=== PATIENT | female | born 1965 | race Caucasian/White ===

== ENCOUNTER 2019-08-26 16:59 | Emergency (ER) | payer SELFPAY ==
--- NOTE | ~2019-08-26 | XR_ITS ---
EXAMINATION: XR chest ET placement INDICATION: Endotracheal tube insertion TECHNIQUE: Portable AP chest at 1747 hours COMPARISON: 09/27/2017 FINDINGS: An endotracheal tube has been inserted which ends 5.0 cm above the shawanda. The lung volumes are low. No definite acute airspace opacities are identified. The cardiomediastinal silhouette is no rmal. There is no pleural effusion or pneumothorax. IMPRESSION: 1. Endotracheal tube approximately 5.0 cm above the shawanda. Reviewed, dictated and finalized at location A.
--- NOTE | ~2019-08-26 | CT_ITS ---
EXAMINATION: CT brain wo con INDICATION: Unresponsive, unknown downtime COMPARISON: 04/20/2016 TECHNIQUE: Standard unenhanced head CT. The dose-length product (DLP) was 605.33 mGy-cm. The mA was a djusted according to patient size. Iterative reconstruction technique was employed. FINDINGS: There is no intracranial hemorrhage, acute infarction, or abnormal mass lesion. The ventric les are normal. There is no abnormal mass effect or midline shift. The potter-white matter differentiat ion is normal. The basal cisterns are patent. The orbits are normal. There is mild mucosal thickening of the paranasal sinuses. IMPRESSION: 1. No acute intracranial abnormality. Reviewed, dictated and finalized at location A.
[2019-08-26 17:00] VITALS: BP 87/24; PULSE 99; RESP 12; TEMP 36.5; O2SAT 100
[2019-08-26 17:17] VITALS: PULSE 106; O2SAT 100
[2019-08-26 17:36] LABS: Basophils Absolute Auto 0.01 K/mm3 (0.00-0.10); Basophils Percent Auto 0.1 % (0.0-1.0); Eosinophils Absolute Auto 0.01 K/mm3 (0.02-0.50); Eosinophils Percent Auto 0.1 % (1.0-6.0); Hematocrit 32.6 % (35.0-49.0); Immature Granulocyte Absolute 0.12 K/mm3 (0.00-0.00); Immature Granulocyte Percent A 1.2 % (0.0-0.0); Lymphocytes Absolute Auto 0.77 K/mm3 (1.10-4.50); Lymphocytes Percent Auto 7.6 % (18.0-42.0); Mean Corpuscular HGB Conc 30.7 g/dL (32.0-36.0); Mean Corpuscular Hemoglobin 30.9 pg (27.0-31.0); Mean Corpuscular Volume 100.6 fL (78.0-102.0); Mean Platelet Volume 12.8 fl (9.2-11.8); Monocytes Absolute Auto 0.46 K/mm3 (0.10-0.90); Monocytes Percent Auto 4.5 % (2.0-11.0); Neutrophils Absolute Auto 8.8 K/mm3 (1.7-7.2); Neutrophils Percent Auto 86.5 % (50.0-70.0); Nucleated Red Blood Cells Absolute Auto 0.08 K/mm3 (0.00-0.00); Nucleated Red Blood Cells Perc 0.8 % (0-0.0); Platelet Count Result 110 K/mm3 (150-420); Red Blood Count 3.24 M/mm3 (4.20-5.40); White Blood Count 10.2 K/mm3 (4.8-10.8)
--- NOTE | 2019-08-26 17:45 | ECG_ITS ---
Measurements Intervals [place] Rate: 99 P: 56 AL: 176 QRS: 35 QRSD: 94 T: 44 QT: 398 QTc: 512 Interpretive Statements SINUS RHYTHM INCOMPLETE RIGHT BUNDLE BRANCH BLOCK LOW QRS VOLTAGE IN PRECORDIAL LEADS BORDERLINE ST ABNORMALITY- DIFFUSE LEADS BASELINE WANDER- II, III BORDERLINE ECG Electronically Signed On 08-27-2019 7:16:32 CDT by Baldo Hernandez D.O.
[2019-08-26 17:48] LABS: Alveolar/Arterial O2 Gradient 208.7 mmHg; Base Excess ABG -22.8 mmol/L (0-2); Fractional Inspired Oxygen 100 %; Oxygen Content ABG 17.3 %vol (16.0-22.0); Oxyhemoglobin 99.2 % (94-100); PCO2 ABG 36.1 mmHg (35-45); PO2 ABG 468.2 mmHg (80-90); PO2 FiO2 Ratio Arterial Blood 4.68 %; Total Hemoglobin 11.5 g/dL
[2019-08-26 17:50] LABS: INR 2.3; Partial Thromboplastin Time 34.8 SEC (22.3-31.6); Prothrombin Time 22.8 Seconds (9.64-11.0)
[2019-08-26 17:50] LABS: pH ABG 6.97 (7.35-7.45)
[2019-08-26 17:51] LABS: Device OTHER DEVICE; Modified Allen's Test Unable to perform; Site Drawn LEFT RADIAL
[2019-08-26 17:58] LABS: Ammonia 76 umol/L (11-32); Anion Gap 38.9 mmol/L (7-16); Blood Urea Nitrogen 16 mg/dL (7-18); Calcium 6.9 mg/dL (8.5-10.1); Carbon Dioxide 9 mmol/L (21-32); Chloride 92 mmol/L (98-108); Creatine Kinase 346 U/L (26-192); Estimated Glomerular Filt Rate 17; Glucose 106 mg/dL (70-99); Magnesium 2.1 mg/dL (1.8-2.4); Osmolality Calculated 279 mOsm/kg (285-295); Potassium 5.9 mmol/L (3.5-5.1); Sodium 134 mmol/L (136-145)
[2019-08-26 17:59] LABS: Troponin I < 0.02 ng/mL (0.00-0.056)
[2019-08-26 18:19] LABS: Albumin Level 2.2 g/dL (3.4-5.0); Alkaline Phosphatase 275 U/L (46-116); Bilirubin,Total 8.9 mg/dL (0.00-1.00); Total Protein 6.1 g/dL (6.4-8.2)
[2019-08-26 18:19] LABS: BNP 151 pg/mL (0-100)
[2019-08-26 18:20] LABS: Acetaminophen 0 ug/mL (10-30); Salicylate < 0.3 mg/dL (2.8-20.0)
[2019-08-26 18:21] LABS: Alanine Aminotransferase > 1000 U/L (14-59)
[2019-08-26] MEDS: SODIUM CHLORIDE 0.9% IV 1,000 ML 999 ML IV CONT ×2 (18:37→21:50)
--- NOTE | 2019-08-26 18:55 | PC.NURSE ---
1851. [employer] AT [facility], [place], CONTACTED AT THIS TIME FOR TRANSFER. AWAITING CALL BACK.
--- NOTE | 2019-08-26 19:19 | ED.AMS ---
HPI - Altered Mental Status General Chief Complaint: Altered Mental Status Stated Complaint: AMB Source: EMS Limitations: altered mental status History of Present Illness HPI narrative: Patient is a 54-year-old female who was last seen in her normal state of health last night. She has multiple health problems including diabetes alcoholism and some problems with bone infections. Today she was found unresponsive by her family. On arrival in the emergency department she and only moans, and did withdraw to pain. She was otherwise unresponsive. Her respirations were spontaneous, but fast. EMS had checked her blood sugar and found it to be low in the field, and treated that with D10. MD complaint: altered mental status Onset (ago): unknown Context: alcohol abuse, drug abuse, diabetes, liver disease ( Patient has yellow eyes so it appears she has liver disease) and unknown Related Data Home Medications Medication Instructions Recorded Confirmed folic acid 1 mg PO DAILY 08/26/19 08/26/19 furosemide 20 mg PO BID 08/26/19 08/26/19 gabapentin 300 mg PO BID 08/26/19 08/26/19 glipizide 5 mg PO DAILY 08/26/19 08/26/19 lactulose 15 ml PO DAILY 08/26/19 08/26/19 levothyroxine 25 mcg PO DAILY 08/26/19 08/26/19 metformin 500 mg PO BID 08/26/19 08/26/19 potassium chloride 20 meq PO BID 08/26/19 08/26/19 spironolactone 50 mg PO BID 08/26/19 08/26/19 tramadol 50 mg PO PRN 08/26/19 08/26/19 Allergies Allergy/AdvReac Type Severity Reaction Status Date / Time No Known Allergies Allergy Unverified 09/27/17 21:03 Review of Systems Review of Systems: Narrative: unable to obtain [facility] Past Medical History Medical History (Updated 08/27/19 @ 00:00 by Background Daemon) Osteomyelitis Comments unable to obtain due to unresponsive/non-verbal Exam Const: General: ill appearing Nutritional Appearance: obese Other: unresponsive HENMT: Other: extremely dry mucus membranes Eyes: Other: scleral icterus Neck: Neck: normal visual inspection Resp: Effort & Inspection: tachypneic and uses accessory muscles Other: unable to protect airway Cardio: Rate: tachycardic GI: Inspection: distended GI Palp: Yes Soft to palpation, No Guarding due to palpation present (GI) and No Rigid due to palpation Urinary Catheter: Urinary Catheter: urine dark (solied in urine and feces) Skin: General skin exam: jaundice Neuro: Other: moans/ didnt withdraw to pain, but did reach up to grab the bag when BVM Extrem: Other: poor circulation Course Course Emergency Course: patient was one-to-one care. On receiving the patient was obvious she was unable to protect her airway decision was made to intubate 20 of etomidate was given patient still had clenched mouth for 10 of vecuronium was given. Once adequate sedation was present patient was intubated with a 7.0 ET tube 21 cm at the lips. She was then given 10 mg of Versed and 10 mg of morphine as sedation while on the ventilator. Patient was placed and a tidal volume of 450 cc with a rate of 10 and 100% FiO2. Once the blood gas was received at patient's oxygen was titrated back to 50%. Patient's blood pressure was very unstable at at and was in the 50s range systolic fluid boluses were given on IV pressure bags however blood pressure did not immediately respond therefore Levophed was initiated. The patient's blood pressure did increase with the Levophed however it did need to be titrated up. Wants 4 L of fluid were in patient's blood pressure did increase and the Levophed was able to be tapered. Patient's blood gas was evaluated bicarb was noted to be very low therefore 2 amps of bicarb were given less than a drip of normal saline containing 2 amps of bicarb was administered at 250 cc an hour. We were able to obtain good peripheral access. I attempted to transfer patient to [facility] however they felt it needed to be bigger institution, therefore I called [facility]. [facility]
[2019-08-26] MEDS: SODIUM CHLORIDE 0.9% IV 1,000 ML 250 ML IV CONT (19:20)
[2019-08-26 19:23] VITALS: PULSE 94; O2SAT 98
[2019-08-26] MEDS: SODIUM BICARBONATE 8.4% 50 MEQ/50 ML VIAL 200 MEQ IV PUSH (19:33)
[2019-08-26 19:42] LABS: Aspartate Amino Transferase > 796 U/L (15-37)
[2019-08-26 20:04] LABS: Glucose Point of Care 105 (65-105)
[2019-08-26] MEDS: ACETYLCYSTEINE IV 15,000 MG in DEXTROSE 5% IN WATER 200 ML 275 MG IVPB (20:33)
[2019-08-26 21:16] LABS: Add Urine Microscopic? YES; Appearance Urine Cloudy (Clear); Bilirubin Urine 3+ (Negative); Blood Urine 3+ (Negative); Color Urine Amber (Yellow); Glucose Urine UA Negative (Negative); Ketones Urine Trace (Negative); Leukocyte Esterase Ur Negative LEU/UL (Negative); Nitrate Urine Positive (Negative); Protein Urine 2+ (Negative); Specific Grav Ur 1.025 (1.010-1.020); pH Urine 5.5 (5.0-8.0)
[2019-08-26 21:22] LABS: Bacteria Urine 3+ /hpf; Squamous Epithelial Cell Urine Few /hpf (Few); WBC Urine 0-3 /hpf (0-3)
[2019-08-26 21:25] LABS: Amphetamine Screen Urine Negative (Negative); Barbiturate Screen Urine Negative (Negative); Benzodiazepines Screen Urine Negative (Negative); Cannabinoid Screen Urine Negative (Negative); Cocaine Screen Urine Negative (Negative); Methadone Screen Urine Negative (Negative); Opiate Screen Urine Negative (Negative); Phencyclidine Screen Urine Negative (Negative)
[2019-08-26 21:46] VITALS: PULSE 86; O2SAT 97
[2019-08-26 21:54] LABS: Anion Gap 35.3 mmol/L (7-16); Blood Urea Nitrogen 15 mg/dL (7-18); Calcium 6.5 mg/dL (8.5-10.1); Carbon Dioxide 12 mmol/L (21-32); Chloride 94 mmol/L (98-108); Estimated Glomerular Filt Rate 16; Glucose 144 mg/dL (70-99); Osmolality Calculated 283 mOsm/kg (285-295); Sodium 135 mmol/L (136-145)
[2019-08-26] MEDS: ACETYLCYSTEINE IV 5,000 MG in DEXTROSE 5% IN WATER 500 ML 131.25 MG IVPB (21:54)
[2019-08-26 22:03] LABS: Potassium 6.3 mmol/L (3.5-5.1)
[2019-08-26 22:22] LABS: HCO3 VBG 12.1 mEq/l (24.0-30.0); PCO2 VBG 48.5 mmHg (42.0-48.0); PO2 VBG 59.8 mmHg (35.0-45.0); pH VBG 7.02 (7.33-7.43)
[2019-08-26 22:23] LABS: Device OTHER DEVICE; Fractional Inspired Oxygen 100 %
[2019-08-26 23:24] VITALS: BP 83/36; PULSE 88; RESP 10; TEMP 36.5; O2SAT 100
--- NOTE | 2019-08-26 23:37 | PC.NURSE ---
2 AMPS BICARB IN 1 L NS AT 250 ML/HR STARTED AT 1920 AND FINISHED AT 2319
--- NOTE | 2019-08-26 23:58 | PC.NURSE ---
All trending vital signs during time as ER patient was printed, stickered. and placed in paper chart
[2019-08-27 14:29] LABS: Glucose Point of Care 130 (65-105)
== END 2019-08-26 23:24 | disposition short-term general hospital (02) ==
PROVIDERS: Emergency Provider Emergency Medicine
DX: J96.00 Acute respiratory failure, unspecified whether with hypoxia or hypercapnia (principal); F10.20 Alcohol dependence, uncomplicated; R41.82 Altered mental status, unspecified; K72.01 Acute and subacute hepatic failure with coma; E10.9 Type 1 diabetes mellitus without complications
CPT/HCPCS: 31500; 36415; 36600; 70450; 80048; 80053; 80307; 81001; 82140; 82550; 82553; 82803; 82805; 83735; 83880; 84484; 85025; 85380; 85610; 85730; 87040; 87086; 93005; 96361; 96365; 96367; 96375; 99283; 99291; J0132; J0743; J1610; J2250; J2270; J3370; J7030; J7060